=== PATIENT | female | born 1990 | race Two or more races ===

== ENCOUNTER 2018-02-11 15:34 | Emergency (ER) | payer OTHER ==
[2018-02-11 16:41] LABS: ABS Basophils 0.1 10^3/ul (0-0.2); ABS Eosinophils 0.1 10^3/ul (0-0.6); ABS Lymphocytes 0.8 10^3/ul (1.0-4.8); ABS Monocytes 0.4 10^3/ul (0-0.8); ABS Neutrophils 3.6 10^3/ul (1.5-7.7); ABS Nucleated RBC 0 10^3/ul; Eosinophil % 1.2 % (0-6); Hematocrit 33 % (35-47); Hemoglobin 10.3 g/dl (12.0-16.0); Lymphocyte % 16.6 % (25-47); Mean Corpuscular HGB Conc 32 g/dl (31-36); Mean Corpuscular Hemoglobin 22 pg (27-31); Mean Corpuscular Volume 69 fL (80-97); Mean Platelet Volume 8.1 um3 (7.4-10.4); Nucleated Red Blood Cells % 0; Platelet Count 208 10^3/ul (150-450); Red Blood Count 4.74 10^6/ul (4.00-5.40); Red Cell Distribution Width 16 % (10.5-15)
[2018-02-11 16:52] LABS: EGFR Non-African American 99.6 (>60)
--- NOTE | 2018-02-11 17:00 | ED ---
Dizziness - HPI Summary HPI Summary: Patient is a 27-year-old female presenting to the ED with complaint of dizziness , tingling the back of her bilateral upper legs, blurry vision associated with dizziness and one episode of vomiting. Symptoms began 2 days ago with tingling to the legs after taking an antiviral medication. This has never happened to her before. One day later she developed some dizziness (she states this is not uncommon for her), and dizziness has been present intermittently over the past few years. She also endorses blurry vision associated with the dizziness which is also been present over the last few years. She awoke this morning with nausea and one episode of vomiting. Denies any known diagnosis other than allergies. She states she was also diagnosed with anemia but does not take medications. - History Of Current Complaint Chief Complaint: EDDizziness Stated Complaint: DIZZY/VOMITING/TINGLING ON BOTH LEGS Time Seen by Provider: 02/11/18 15:46 Hx Obtained From: Patient Onset/Duration: Still Present Timing: Constant Severity Initially: Mild Severity Currently: Mild Character: Lightheaded - subsided at this time Aggravating Factor(s): Nothing Alleviating Factor(s): Nothing Associated Signs And Symptoms: Positive: Nausea, Vomiting, Other: - tingling behind legs - Risk Factors Cardiac Risk Factors: Negative CVA Risk Factor: Negative - Allergies/Home Medications Allergies/Adverse Reactions: Allergies Allergy/AdvReac Type Severity Reaction Status Date / Time No Known Allergies Allergy Verified 02/11/18 15:42 PMH/Surg Hx/FS Hx/Imm Hx Previously Healthy: Yes - Immunization History Hx Pertussis Vaccination: No Immunizations Up to Date: Unable to Obtain/Confirm Infectious Disease History: No Infectious Disease History: Denies: Traveled Outside the [place] in Last 30 Days - Social History Occupation: Unemployed, Student Lives: With Family Alcohol Use: Occasionally Hx Substance Use: No Substance Use Type: Reports: None Hx Tobacco Use: No Smoking Status (MU): Never Smoked Tobacco Review of Systems Positive: Fatigue. Negative: Fever, Chills, Skin Diaphoresis Negative: Photophobia, Blurred Vision, Diplopia Negative: Palpitations, Chest Pain Negative: Shortness Of Breath, Cough Positive: Vomiting, Nausea. Negative: Abdominal Pain, Diarrhea Genitourinary: Negative Positive: no symptoms reported, see HPI Negative: Arthralgia, Myalgia Positive: Weakness - dizziness, Paresthesia - bilateral legs (posterior upper legs) Psychological: Normal All Other Systems Reviewed And Are Negative: Yes Physical Exam Triage Information Reviewed: Yes Vital Signs On Initial Exam: Initial Vitals Temp Pulse Resp BP Pulse Ox 98.6 F 86 15 125/81 100 02/11/18 15:40 02/11/18 15:40 02/11/18 15:40 02/11/18 15:40 02/11/18 15:40 Vital Signs Reviewed: Yes Appearance: Positive: Well-Appearing, Well-Nourished Skin: Positive: Warm, Skin Color Reflects Adequate Perfusion Head/Face: Positive: Normal Head/Face Inspection Eyes: Positive: EOMI, WALTER, Conjunctiva Clear - . Neck: Positive: Supple, No Lymphadenopathy Respiratory/Lung Sounds: Positive: Clear to Auscultation, Breath Sounds Present Musculoskeletal: Positive: Normal, Strength/ROM Intact Neurological: Positive: Sensory/Motor Intact, Alert, Oriented to Person Place, Time, CN Intact II-III, Reflexes Intact, Normal Gait, Heel to Toe - normal, Finger to Nose - normal, Speech Normal Psychiatric: Positive: Normal, Affect/Mood Appropriate AVPU Assessment: Alert Diagnostics - Vital Signs Vital Signs Temp Pulse Resp BP Pulse Ox 02/11/18 16:00 84 24 100 02/11/18 15:52 77 7 112/73 100 02/11/18 15:40 98.6 F 86 15 125/81 100 - Laboratory Lab Results: Lab Results 02/11/18 02/11/18 Range/Units 16:26 16:26 WBC 5.0 (3.5-10.8) 10^3/ul RBC 4.74 (4.00-5.40) 10^6/ul Hgb 10.3 L (12.0-16.0) g/dl Hct 33 L (35-47) % MCV 69 L (80-97) fL MCH 22 L (27-31) pg MCHC 32 (31-36) g/dl RDW 16 H (10.5-15) % Plt Count 208 (150-450) 10^3/ul MPV 8.1 (7.4-10.4) um3 Neut % (Auto) 72.8 (38-83) % Lymph % (Auto) 16.6 L (25-47) % [place] % (Auto) 8.3 H (0-7) % Eos % (Auto) 1.2 (0-6) % Baso % (Auto) 1.1 (0-2) % Absolute Neuts (auto) 3.6 (1.5-7.7) 10^3/ul Absolute Lymphs (auto) 0.8 L (1.0-4.8) 10^3/ul Absolute Monos (auto) 0.4 (0-0.8) 10^3/ul Absolute Eos (auto) 0.1 (0-0.6) 10^3/ul Absolute Basos (auto) 0.1 (0-0.2) 10^3/ul Absolute Nucleated RBC 0 10^3/ul Nucleated RBC % 0 ESR Pending Sodium 138 (135-145) mmol/L Potassium 3.7 (3.5-5.0) mmol/L Chloride 103 (101-111) mmol/L Carbon Dioxide 28 (22-32) mmol/L Anion Gap 7 (2-11) mmol/L BUN 6 (6-24) mg/dL Creatinine 0.70 (0.51-0.95) mg/dL Est GFR ( Amer) 120.6 (>60) Est GFR (Non-Af Amer) 99.6 (>60) BUN/Creatinine Ratio 8.6 (8-20) Glucose 97 (70-100) mg/dL Calcium 9.4 (8.6-10.3) mg/dL Magnesium 1.9 (1.9-2.7) mg/dL Total Bilirubin 0.40 (0.2-1.0) mg/dL AST 11 L (13-39) U/L ALT 7 (7-52) U/L Alkaline Phosphatase 44 (34-104) U/L C-Reactive Protein < 1.00 (<8.01) mg/L Total Protein 7.7 (6.4-8.9) g/dL Albumin 4.3 (3.2-5.2) g/dL Globulin 3.4 (2-4) g/dL Albumin/Globulin Ratio 1.3 (1-3) Vitamin B12 Pending Folate Pending Result Diagrams: 02/11/18 16:26 02/11/18 16:26 Lab Statement: Any lab studies that have been ordered have been reviewed, and results considered in the medical decision making process. Dizzy Course/Dx - Course Course Of Treatment: Patient is evaluated for multiple complaints. She endorses dizziness, one episode of vomiting, and tinglings to the back of her upper legs. She states she took an antiviral medication 2 days ago and subsequently developed these symptoms. However, she states dizziness has been present over the past 2 years intermittently. Labs obtained which are fairly unremarkable except for a slightly low H&H. EKG shows normal sinus rhythm. I believe her tingling to be a side effect of her recent antiviral. However, I will give her a referral to neurology if symptoms persist. She denies SMART. I do not believe she requires a CT at this time. Strength in bilateral lower extremitities without limitations. No evidence of visual changes. Patient is slightly anemic and I have recommended iron every 2-3 days as well as given her nausea medication if symptoms persist. She understands and is okay with this plan and discharge. - Diagnoses Differential Diagnosis/HQI/PQRI: Anxiety, Medication Reaction, Metabolic Abnormality Provider Diagnoses: Numbness and tingling of both legs, Dizziness Discharge - Sign-Out/Discharge Documenting (check all that apply): Discharge/Admit/Transfer - Discharge Plan Condition: Stable Disposition: HOME Prescriptions: Ferrous Sulfate TAB* 325 mg PO DAILY #30 tab Ondansetron ODT TAB* [Zofran 4 MG Odt TAB*] 4 mg PO Q6H PRN #12 tab.odt MDD 4 PRN Reason: Nausea Patient Education Materials: Dizziness (ED) [facility] [Primary Care Provider] - Additional Instructions: Take iron supplement every 2-3 days This may cause constipation, so please take a stool softener if needed and reduce the amount of iron if this develops. Please follow-up with neurology if any tingling sensation continues or if you develop any continuing dizziness Labs are all normal today except for low iron EKG is normal today I have given you a prescription for Zofran if you continue to have nausea - Billing Disposition and Condition Condition: STABLE Disposition: Home
[2018-02-11 17:15] VITALS: BP 102/67
== END 2018-02-11 17:19 | disposition home or self-care (01) ==
LOC: ED 15:34
DX: R42 Dizziness and giddiness (principal); R20.0 Anesthesia of skin; R20.2 Paresthesia of skin; D64.9 Anemia, unspecified
CPT/HCPCS: 36415; 80053; 82607; 82746; 83735; 85025; 85652; 86140; 93005; 99282